=== PATIENT | male | born 1980 | race Two or more races ===

== ENCOUNTER 2019-09-14 11:47 | Outpatient (CLI) | payer OTHER ==
[~2019-09-14 11:47] MED LIST: DIOVAN40 MG PO
== END 2019-09-14 11:52 | disposition home or self-care (01) ==
LOC: LAB 11:47
DX: J11.1 Influenza due to unidentified influenza virus with other respiratory manifestations (principal); R05 Cough; R06.2 Wheezing; I10 Essential (primary) hypertension